=== PATIENT | female | born 1995 | race Two or more races ===

== ENCOUNTER 2022-01-01 09:24 | Inpatient (IN) | payer MEDICAID ==
[~2022-01-01] VITALS: Ht 149.9 cm; Wt 62.1 kg
[2022-01-01] MEDS ORDERED: TERBUTALINE SULFATE 1 MG/ML 1ML VIAL SC ONE (09:59)
[2022-01-01] MEDS ORDERED: AMPICILLIN SOD 2GM INJ 2 GM in SODIUM CHL 0.9% 100 ML IV ONE (10:00)
[2022-01-01] MEDS ORDERED: LACTATED RINGER'S 1,000 ML IV SCH (10:00)
[2022-01-01] MEDS ORDERED: TERBUTALINE SULFATE 1 MG/ML 1ML VIAL SC SCH (10:00)
[2022-01-01] MEDS ORDERED: BETAMETHASONE ACET (30mg/5ml) 5ml Vial 6mg/ml IM SCH (10:00)
[2022-01-01] MEDS ORDERED: MAGNESIUM SULFATE 40MG/ML 1,000 ML IV SCH (10:15)
[2022-01-01] MEDS ORDERED: MAGNESIUM SULFATE 100 ML IV ONE (10:15)
[2022-01-01] MEDS ORDERED: AMPICILLIN SOD 500 MG INJ ONE (10:25)
[2022-01-01 10:29] LABS: Basophils # (auto) 0.1 10 ^3/uL (0-0.2); Basophils % (auto) 0.7 % (0.0-2.0); Eosinophils # (auto) 0 10 ^3/uL (0-0.8); Eosinophils % (auto) 0.1 % (0.0-7.0); Hematocrit 35.5 % (36.0-46.0); Hemoglobin 12.2 g/dL (12.2-16.2); Lymphocytes # (auto) 1.4 10 ^3/uL (0.4-5.4); Lymphocytes % (auto) 8.7 % (10.0-50.0); Mean Corpuscular Hgb Conc. 34.4 g/dL (32.0-36.0); Monocytes # (auto) 1.1 10 ^3/uL (0-1.3); Monocytes % (auto) 7.2 % (0.0-12.0); Neutrophils # (auto) 13.2 10 ^3/uL (1.6-8.6); Neutrophils % (auto) 83.3 % (37.0-80.0); Red Blood Cells 3.81 10^6/uL (4.0-5.20); Red Cell Distribution Width 13.7 % (11.8-14.3); White Blood Cell 15.9 10^3/uL (4.4-10.8)
[2022-01-01 10:47] LABS: INR 0.93 (0.9-1.15); Partial Thromboplastin Time 29.6 sec (24.6-33.4)
[2022-01-01 10:48] LABS: Albumin 2.8 g/dL (3.4-5.0); Calcium 8.8 mg/dL (8.5-10.1); Potassium 3.4 mmol/L (3.5-5.1); Uric Acid 2.1 mg/dL (2.6-6.0)
[2022-01-01 10:51] LABS: BUN/Creatinine Ratio 6.8; Bilirubin, Total 0.4 mg/dL (0.2-1.0); Total Protein 6.9 g/dL (6.4-8.2)
[2022-01-01 11:01] LABS: Urine Blood Negative /uL (Negative); Urine Specific Gravity 1.004 (1.001-1.035)
[2022-01-01 11:08] LABS: Amphetamine Screen, Urine NEGATIVE (NEGATIVE); Barbiturate Scree,Urine NEGATIVE (NEGATIVE); Benzodiazephine Screen, Urine NEGATIVE (NEGATIVE); Cannabinoid Screen, Urine NEGATIVE (NEGATIVE); Cocaine Screen, Urine NEGATIVE (NEGATIVE); Opiate Scree,Urine NEGATIVE (NEGATIVE); Phencyclidine Screen, Urine NEGATIVE (NEGATIVE)
[2022-01-02 07:06] LABS: Rubella Antibodies, IgG <0.90 index (Immune >0.99)
[2022-01-02 08:07] LABS: RPR Non Reactive (Non Reactive)
== END 2022-01-01 11:40 | disposition short-term general hospital (02) | DRG 566 ==
LOC: LDRP 09:24 → UNDOADMOB 09:24 → OBSVTOIN 09:39 → LDRP 09:39
PROVIDERS: ADMIT Obstetrics & Gynecology; ATTEND Obstetrics & Gynecology
DX: O60.02 Preterm labor without delivery, second trimester (principal); O41.02X0 Oligohydramnios, second trimester, not applicable or unspecified; O42.912 Preterm premature rupture of membranes, unspecified as to length of time between rupture and onset of labor, second trimester; Z3A.25 25 weeks gestation of pregnancy; Z20.822 Contact with and (suspected) exposure to COVID-19
CPT/HCPCS: 36415; 59025; 76805; 80053; 80307; 81002; 81003; 83735; 84112; 84550; 85025; 85610; 85730; 86592; 86762; 86850; 86900; 86901; 87340; 87426; 94760; 96360; 96365; 96372; G0378